=== PATIENT | female | born 1975 | race African-American/Black ===

== ENCOUNTER 2019-02-17 12:22 | Emergency (ER) | payer MEDICAID ==
[~2019-02-17] VITALS: Ht 160 cm; Wt 70.0 kg
[~2019-02-17 12:22] MED LIST: ABIL5; BUPR75TA3
[2019-02-17] MEDS ORDERED: TRAMADOL 50MG TABLET PO ONE (15:15)
[2019-02-17 17:54] VITALS: BP 132/82
== END 2019-02-17 17:56 | disposition home or self-care (01) ==
LOC: ER 12:22
DX: G89.29 Other chronic pain (principal); M25.511 Pain in right shoulder; J45.909 Unspecified asthma, uncomplicated; F31.9 Bipolar disorder, unspecified; D64.9 Anemia, unspecified; Z90.89 Acquired absence of other organs; Z88.1 Allergy status to other antibiotic agents; V49.88XA Car occupant (driver) (passenger) injured in other specified transport accidents, initial encounter; Y93.89 Activity, other specified; Y92.89 Other specified places as the place of occurrence of the external cause; Y99.8 Other external cause status
CPT/HCPCS: 73030; 81025; 99283

== ENCOUNTER 2019-06-23 10:59 | Emergency (ER) | payer MEDICAID ==
[~2019-06-23] VITALS: Ht 144.8 cm; Wt 46.0 kg
[2019-06-23 12:20] LABS: HEMATOCRIT. 29.2 % (36.0-48.0); HEMOGLOBIN. 8.9 g/dL (12.0-16.0); MEAN CORPUSCULAR HEMOGLOBIN 21.9 pg (28.0-32.0); MEAN PLATELET VOLUME 9.3 fl (7.4-10.4); PLATELET 208 x1000/uL (130-400); RED BLOOD CELL COUNT 4.06 mill/uL (4.2-5.4); RED CELL DISTRIBUTION WIDTH 17.7 % (11.6-14.6)
[2019-06-23 12:24] LABS: CLARITY URINE CLEAR (CLEAR); COLOR URINE YELLOW (YELLOW); KETONES URINE NEGATIVE (NEGATIVE); LEUKOCYTE ESTERASE URINE NEGATIVE (NEGATIVE); NITRITE URINE NEGATIVE (NEGATIVE); OCCULT BLOOD URINE NEGATIVE (NEGATIVE); PH URINE 7.5 (4.5-8.0); PROTEIN URINE NEGATIVE (NEGATIVE); SPECIFIC GRAVITY URINE 1.004 (1.005-1.030); UROBILINOGEN URINE 0.2 E.U./dL (0.2-1.0)
[2019-06-23 12:29] LABS: CHLORIDE 107 mEq/L (98-107)
[2019-06-23 12:38] LABS: INR 1.1; PROTHROMBIN TIME 10.9 sec (9.6-11.0)
[2019-06-23] MEDS ORDERED: LACTATED RINGERS 1,000 ML IV STA (12:52)
[2019-06-23 13:28] LABS: PLATELET ESTIMATE NORMAL
[2019-06-23 13:49] LABS: HCG SCREEN NEGATIVE
[2019-06-23] MEDS ORDERED: SODIUM CHLORIDE 0.9% 500 ML IV ONE (14:45)
[2019-06-23 15:48] VITALS: BP 136/75
== END 2019-06-23 15:45 | disposition home or self-care (01) ==
LOC: ER 10:59
DX: R55 Syncope and collapse (principal); D50.9 Iron deficiency anemia, unspecified; F31.9 Bipolar disorder, unspecified; M32.9 Systemic lupus erythematosus, unspecified; Z98.890 Other specified postprocedural states; Z88.1 Allergy status to other antibiotic agents; Z79.899 Other long term (current) drug therapy
CPT/HCPCS: 36415; 80053; 81003; 84484; 84703; 85025; 85610; 86850; 86900; 86901; 96360; 96361; 99283; J7040; J7120

== ENCOUNTER 2019-11-02 15:57 | Emergency (ER) | payer MEDICAID ==
[~2019-11-02] VITALS: Ht 160 cm; Wt 65.0 kg
[2019-11-02] MEDS ORDERED: HYDROCODONE/ACETAMINOPHEN 5/325MG TABLET PO ONE (17:00)
[2019-11-02] MEDS ORDERED: ONDANSETRON 4MG ODT PO ONE (17:00)
[2019-11-02 18:06] VITALS: BP 122/84
== END 2019-11-02 18:09 | disposition home or self-care (01) ==
LOC: ER 15:57
DX: S93.692A Other sprain of left foot, initial encounter (principal); F31.9 Bipolar disorder, unspecified; Z21 Asymptomatic human immunodeficiency virus [HIV] infection status; Z98.1 Arthrodesis status; Z88.1 Allergy status to other antibiotic agents; W10.8XXA Fall (on) (from) other stairs and steps, initial encounter; Y93.89 Activity, other specified; Y92.018 Other place in single-family (private) house as the place of occurrence of the external cause
CPT/HCPCS: 73630; 81025; 99283; Q0162